=== PATIENT | male | born 1965 | race Caucasian/White ===

== ENCOUNTER 2017-03-30 15:45 | Emergency (ER) | payer SELFPAY ==
[2017-03-30] MEDS ORDERED: Benzonatate 100 MG Cap PO ONE (17:13)
--- NOTE | 2017-03-30 17:14 | EDM.PDOC ---
ED HPI GENERAL MEDICAL PROBLEM - General Chief Complaint: Respiratory Problem Stated Complaint: COUGH,BODY ACHES,DIARRHEA,VOMITING Time Seen by Provider: 03/30/17 16:14 Source of Information: Reports: Patient History Limitations: Reports: No Limitations - History of Present Illness INITIAL COMMENTS - FREE TEXT/NARRATIVE: The patient is a 51-year-old male with a chief complaint of cough. He states he' s been ill for about a week. No documented fever. Cough is mildly productive. He 's had some posttussive vomiting. He's also had a little bit of diarrhea. He feels miserable. He has lots of body aches and pains. No shortness of breath. No rash. No known ill contacts. Has not seen a primary care physician for this problem. He does continue to smoke cigarettes. Treatments LIVESTOCK TRADER: Reports: Other (see below) Other Treatments LIVESTOCK TRADER: motrin Generalized Pain Score (Numeric/FACES): 7 - Related Data Allergies Allergy/AdvReac Type Severity Reaction Status Date / Time No Known Allergies Allergy Verified 03/30/17 16:08 Home Meds: Home Meds Aspirin [Halfprin] 81 mg PO DAILY 03/30/17 [History] Azithromycin [IJD: Azithromycin] 250 mg PO DAILY #4 tab 03/30/17 [Rx] Past Medical History Gastrointestinal History: Reports: Other (See Below) Other Gastrointestinal History: spleen laceration-repaired. Neurological History: Reports: TIA - Past Surgical History HEENT Surgical History: Reports: Tonsillectomy GI Surgical History: Reports: Appendectomy Social & Family History - Tobacco Use Smoking Status *Q: Current Every Day Smoker Years of Tobacco use: 20 Packs/Tins Daily: 0.5 - Caffeine Use Caffeine Use: Reports: Coffee, Energy Drinks, Tea - Recreational Drug Use Recreational Drug Type: Reports: Marijuana/Hashish ED ROS GENERAL - Review of Systems Review Of Systems: See Below Constitutional: Reports: Chills, Malaise, Weakness, Fatigue HEENT: Reports: Rhinitis Respiratory: Reports: Cough Cardiovascular: Reports: Chest Pain Endocrine: Reports: Fatigue GI/Abdominal: Reports: Nausea, Vomiting : Reports: No Symptoms Musculoskeletal: Reports: Muscle Pain Skin: Denies: Rash ED EXAM, GENERAL - Physical Exam Exam: See Below Exam Limited By: No Limitations General Appearance: Alert, WD/WN, No Apparent Distress Eye Exam: Bilateral Eye: Normal Inspection Ears: Normal External Exam Nose: Normal Inspection Throat/Mouth: Normal Inspection, Normal Oropharynx, Normal Voice, No Airway Compromise Head: Atraumatic, Normocephalic Neck: Normal Inspection, Supple, Non-Tender, Full Range of Motion Respiratory/Chest: No Respiratory Distress, Lungs Clear, Normal Breath Sounds, No Accessory Muscle Use, Chest Non-Tender Cardiovascular: Normal Peripheral Pulses, Regular Rate, Rhythm, No Murmur GI/Abdominal: Soft, Non-Tender, No Distention Extremities: Normal Inspection Neurological: Alert, Oriented, Normal Cognition, No Motor/Sensory Deficits Psychiatric: Normal Affect, Normal Mood Skin Exam: Warm, Dry, Intact, Normal Color, No Rash Course - Vital Signs Last Recorded V/S: Last Vital Signs Temp 36.4 C 03/30/17 16:01 Pulse 62 03/30/17 16:01 Resp 24 H 03/30/17 16:01 BP 144/90 H 03/30/17 16:01 Pulse Ox 98 03/30/17 16:01 - Orders/Labs/Meds Orders: Active Orders 24 hr Category Date Time Status Chest 2V [CR] Stat Exams 03/30/17 17:05 Taken Meds: Medications Discontinued Medications Generic Name Dose Route Start Last Admin Trade Name Freq PRN Reason Stop Dose Admin Azithromycin 500 mg 03/31/17 09:00 Zithromax PO DAILY ABBE Azithromycin 500 mg 03/30/17 17:18 03/30/17 17:25 Zithromax PO 03/30/17 17:19 500 mg ONETIME STA Administration Benzonatate 200 mg 03/30/17 17:13 03/30/17 17:24 Tessalon Perles PO 03/30/17 17:14 200 mg ONETIME ONE Administration - Re-Assessments/Exams Free Text/Narrative Re-Assessment/Exam: 03/31/17 10:35 Chest x-ray negative for infection. Influenza swab negative. Suspect bronchitis. Patient does smoke cigarettes. Counseled him re: need to quit. We' ll treat with azithromycin. Discussed need for follow-up and return precautions. Departure - Departure Time of Disposition: 18:01 Disposition: Home, Self-Care 01 Clinical Impression: Bronchitis - Discharge Information Prescriptions: Azithromycin [IJD: Azithromycin] 250 mg PO DAILY #4 tab Instructions: Acute Bronchitis, [id number] Referrals: PCP,None [Primary Care Provider] - Forms: ED Department Discharge Additional Instructions: 1. Take antibiotic as prescribed 2. Take over the counter cough and cold medication as needed 3. Follow up with the primary care provider of your choice next week for further care. Call [phone] if you'd like to schedule with a provider here. 4. Return to the ED if you have difficulty breathing, worsening shortness of breath, or other concerning symptoms. - My Orders Last 24 Hours: My Active Orders 03/30/17 17:05 Chest 2V [CR] Stat - Assessment/Plan Last 24 Hours: My Active Orders 03/30/17 17:05 Chest 2V [CR] Stat
[2017-03-30] MEDS ORDERED: Azithromycin 250 MG Tab PO STA (17:18)
[2017-03-31] MEDS ORDERED: Azithromycin 250 MG Tab PO SCH (09:00)
--- NOTE | 2017-04-02 08:34 | CR ---
Chest: Two views of the chest were obtained. Comparison: No prior chest x-ray. Heart size at the upper limits of normal. Upper mediastinum within normal limits. 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 Several mild compression deformities are seen believed to be old. Lungs are clear with no acute parenchymal densities. Impression: 1. Incidental findings as noted above. Nothing acute is appreciated. Diagnostic code #2
== END 2017-03-30 18:20 | disposition home or self-care (01) ==
LOC: JD.ED 15:45
DX: J40 Bronchitis, not specified as acute or chronic (principal); F17.210 Nicotine dependence, cigarettes, uncomplicated; Z79.82 Long term (current) use of aspirin
CPT/HCPCS: 71020; 87804; 99284; A9270; 99283

== ENCOUNTER 2017-09-01 09:57 | Emergency (ER) | payer SELFPAY ==
--- NOTE | 2017-09-01 10:18 | EDM.PDOC ---
ED HPI GENERAL MEDICAL PROBLEM - General Chief Complaint: Upper Extremity Injury/Pain Stated Complaint: LT THUMB INFECTED Time Seen by Provider: 09/01/17 10:07 Source of Information: Reports: Patient History Limitations: Reports: No Limitations - History of Present Illness INITIAL COMMENTS - FREE TEXT/NARRATIVE: The patient was working on something yesterday and he got pocked in the left thumb. He woke up this morning with pain, swelling and drainage from the left thumb. He is right handed. His tetanus is up to date. He says many years ago when he was not taking care of himself, he had staph infections. Onset: Sudden Duration: Day(s): (Yesterday) Location: Reports: Upper Extremity, Left (Thumb) Quality: Reports: Sharp Severity: Moderate Improves with: Reports: Immobilization Worsens with: Reports: Movement Context: Reports: Activity (Working on something and got poked) Associated Symptoms: Reports: No Other Symptoms left thumb Pain Score (Numeric/FACES): 5 - Related Data Allergies Allergy/AdvReac Type Severity Reaction Status Date / Time No Known Allergies Allergy Verified 09/01/17 10:06 Home Meds: Home Meds Aspirin [Halfprin] 81 mg PO DAILY 03/30/17 [History] Doxycycline [Vibramycin] 100 mg PO BID #20 cap 09/01/17 [Rx] Past Medical History Gastrointestinal History: Reports: Other (See Below) Other Gastrointestinal History: spleen laceration-repaired. Neurological History: Reports: TIA - Past Surgical History HEENT Surgical History: Reports: Tonsillectomy GI Surgical History: Reports: Appendectomy Social & Family History - Family History Family Medical History: Noncontributory - Tobacco Use Smoking Status *Q: Current Every Day Smoker Years of Tobacco use: 30 Packs/Tins Daily: 1 - Caffeine Use Caffeine Use: Reports: Coffee - Recreational Drug Use Recreational Drug Use: No Review of Systems - Review of Systems Review Of Systems: See Below Constitutional: Reports: No Symptoms Eyes: Reports: No Symptoms Ears: Reports: No Symptoms Nose: Reports: No Symptoms Mouth/Throat: Reports: No Symptoms Respiratory: Reports: No Symptoms Cardiovascular: Reports: No Symptoms GI/Abdominal: Reports: No Symptoms Musculoskeletal: Reports: Other (Pain and swelling to his left thumb) ED EXAM, GENERAL - Physical Exam Exam: See Below Exam Limited By: No Limitations General Appearance: Alert, No Apparent Distress Ears: Normal External Exam Nose: Normal Inspection Head: Atraumatic, Normocephalic Neck: Normal Inspection Respiratory/Chest: No Respiratory Distress Extremities: Other (Pain upon palpation to the left thumb. Puncture wound to the volar aspect with mild edema and erythema. No drainage at this time but patient said he got drainage earlier.) Course - Vital Signs Last Recorded V/S: Last Vital Signs Temp 97.1 F 09/01/17 10:00 Pulse 77 09/01/17 10:00 Resp 18 09/01/17 10:00 BP 132/89 09/01/17 10:00 Pulse Ox 99 09/01/17 10:00 - Re-Assessments/Exams Free Text/Narrative Re-Assessment/Exam: 09/01/17 10:17 I will get him on some doxycycline for 10 days. I will give him a note for work today. Departure - Departure Time of Disposition: 10:20 Disposition: Home, Self-Care 01 Condition: Good Clinical Impression: Cellulitis of left thumb Puncture wound of left thumb Qualifiers: Encounter type: initial encounter Qualified Code(s): S61.032A - Puncture wound without foreign body of left thumb without damage to nail, initial encounter - Discharge Information Prescriptions: Doxycycline [Vibramycin] 100 mg PO BID #20 cap Referrals: PCP,None [Primary Care Provider] - Corby Beltrán MD [Physician] - 1 Week Forms: ED Department Discharge, ED Return to Work/School Form Additional Instructions: Take the doxycycline 2 times per day for 10 days. Soak your thumb in warm soapy water 2 times per day and apply antibiotic ointment after. Follow up with Dr Beltrán our orthopedic surgeon if this is not getting better in a few days. Please return if you are worse.
== END 2017-09-01 10:40 | disposition home or self-care (01) ==
LOC: JD.ED 09:57
DX: S61.032A Puncture wound without foreign body of left thumb without damage to nail, initial encounter (principal); L03.012 Cellulitis of left finger; F17.210 Nicotine dependence, cigarettes, uncomplicated; Z79.82 Long term (current) use of aspirin; Z79.899 Other long term (current) drug therapy; W22.8XXA Striking against or struck by other objects, initial encounter
CPT/HCPCS: 99283